=== PATIENT | female | born 1995 | race Two or more races ===

== ENCOUNTER 2017-11-10 11:26 | Emergency (ER) | payer BC ==
[~2017-11-10] VITALS: Ht 157.5 cm; Wt 65.8 kg
[2017-11-10] MEDS ORDERED: CITALOPRAM HBR40 M1 ORAL (11:36)
[2017-11-10] MEDS ORDERED: CYCLOBENZAPRINE10 MG ORAL (11:36)
[2017-11-10 12:29] LABS: APPEARANCE,URINE SLIGHTLY CLOUDY; BILIRUBIN, URINE NEGATIVE (NEGATIVE); GLUCOSE, URINE (UA) NEGATIVE (NEGATIVE); KETONES,URINE 1+ (NEGATIVE); LEUKOCYTE ESTERASE ,URINE 3+ (NEGATIVE); NITRITE,URINE NEGATIVE (NEGATIVE); PH,URINE 6 (4.5-8.0); PROTEIN,URINE 1+ (NEGATIVE); UROBILINOGEN,URINE NORMAL MG/DL (0.0-1.0)
[2017-11-10 12:30] VITALS: BP 95/64
[2017-11-10 12:32] LABS: BASOPHILS % (AUTO) 0.9 % (0.0-2.0); EOSINOPHILS % (AUTO) 0.2 % (0.0-3.0); HEMATOCRIT 42.1 % (37.0-47.0); HEMOGLOBIN 13.7 G/DL (12.0-16.0); LYMPHOCYTES % (AUTO) 21.5 % (20.0-45.0); MEAN CORPUSCULAR VOLUME 89 FL (80-99); MONOCYTES % (AUTO) 7.7 % (1.0-10.0); NEUTROPHILS % (AUTO) 69.7 % (45.0-75.0); PLATELET COUNT 369 K/UL (150-450); RED BLOOD COUNT 4.71 M/UL (4.20-5.40); RED CELL DISTRIBUTION WIDTH 11.4 % (11.6-14.8); WHITE BLOOD COUNT 12.3 K/UL (4.8-10.8)
[2017-11-10 12:33] LABS: ANION GAP 11 mmol/L (5-15); BLOOD UREA NITROGEN 8 mg/dL (7-18); CALCIUM 9.1 MG/DL (8.5-10.1); CARBON DIOXIDE 27 MMOL/L (21-32); CHLORIDE 105 MMOL/L (98-107); CREATININE 0.7 MG/DL (0.55-1.30); SODIUM 143 MMOL/L (136-145)
[2017-11-10 12:38] LABS: ALANINE AMINOTRANSFERASE 9 U/L (12-78); ALBUMIN 3.4 G/DL (3.4-5.0); ALBUMIN/GLOBULIN RATIO 0.8 (1.0-2.7); ALKALINE PHOSPHATASE 51 U/L (46-116); ASPARTATE AMINO TRANSFERASE 15 U/L (15-37); BILIRUBIN,TOTAL 0.3 MG/DL (0.2-1.0)
[2017-11-10 12:44] LABS: COLOR,URINE YELLOW
--- NOTE | 2017-11-10 13:19 | Emergency Room Report ---
History of Present Illness General Chief Complaint: Behavioral Complaint Source: Patient, EMS Present Illness HPI 22-year-old female brought in by [employer] and EMS for suspected intentional overdose. Patient states she was angry that her girlfriend broke up with her, took 4x40 mg citalopram plus unknown amount of Flexeril. Patient has history of depression She also has abrasions to bilateral wrist Patient very sleepy now, states she "doesn't know" if she was trying to hurt herself. Also endorses marijuana use but denies other drug use Denies other medical problems Denies HI, AVH. Allergies: Coded Allergies: No Known Allergies (Unverified , 11/10/17) Patient History Past Medical History: psych hx Past Surgical History: none Pertinent Family History: none Social History: Denies: smoking, alcohol use, drug use Last Menstrual Period: "About a month ago" states she is irregular Now: No Immunizations: UTD Reviewed Nursing Documentation: PMH: Agreed, PSxH: Agreed Nursing Documentation-PMH History Of Psychiatric Problem: Yes - Depression; Anxiety Review of Systems All Other Systems: negative except mentioned in HPI Physical Exam Vital Signs Date Time Temp Pulse Resp B/P (MAP) Pulse Ox O2 Delivery O2 Flow Rate FiO2 11/10/17 11:30 98.1 70 16 128/88 100 Room Air Sp02 EP Interpretation: reviewed, normal General Appearance: normal inspection, well appearing, no apparent distress, alert, GCS 15, non-toxic Head: normocephalic, atraumatic Eyes: bilateral eye PERRL, bilateral eye EOMI ENT: normal ENT inspection, hearing grossly normal, normal pharynx, no angioedema, normal voice, TMs + canals normal, uvula midline, moist mucus membranes Neck: normal inspection, full range of motion, supple, thyroid normal, no meningismus, no bony tend Respiratory: normal inspection, lungs clear, normal breath sounds, no rhonchi, no respiratory distress, no retraction, no accessory muscle use, no wheezing, speaking full sentences Cardiovascular #1: regular rate, rhythm, no edema, no JVD, normal capillary refill Gastrointestinal: normal inspection, normal bowel sounds, non tender, soft, no mass, no peritonitis, non-distended, no guarding, no hernia, no pulsatile mass Genitourinary: no CVA tenderness Musculoskeletal: normal inspection, back normal, normal range of motion, no calf tenderness, pelvis stable, Damon's Sign negative, other - Very minimal abrasions on bilateral inner wrist, right greater than left Neurologic: normal inspection, alert, oriented x3, responsive, manager math III-XII nml as tested, motor strength/tone normal, cerebellar normal, normal gait, speech normal Psychiatric: normal inspection, judgement/insight normal, mood/affect normal, no suicidal/homicidal ideation, no delusions Skin: normal inspection, normal color, no rash Lymphatic: normal inspection, no adenopathy Medical Decision Making Diagnostic Impression: Primary Impression: Suicidal ideation Additional Impression: Overdose of antidepressant Qualified Codes: T43.202A - Poisoning by unspecified antidepressants, intentional self-harm, initial encounter ER Course Patient placed on monitor ECG non-ischemic, no prolonged QTc or QRS No seizures in ED No hypotension Mild hypoK- repleted Urine preg negative UA grossly contaminate - patient denies urinary complaints mild leukocytosis without neutrophil shift, likely stress reaction Medically cleared Dr Garcia consulted 2pm Pending Psych eval Endorsed to Dr Bennett at 230pm EKG Diagnostic Results Rate: normal Rhythm: NSR ST Segments: no acute changes ASA given to the pt in ED: No Rhythm Strip Diag. Results EP Interpretation: yes Rate: 72 Rhythm: NSR, no PVC's, no ectopy Last Vital Signs Date Time Temp Pulse Resp B/P (MAP) Pulse Ox O2 Delivery O2 Flow Rate FiO2 11/10/17 11:30 98.1 70 16 128/88 100 Room Air Status: improved Referrals: NOT CHOSEN [facility]/,REFERRING (PCP) MEAGAN BELL M.D. Nov 10, 2017 13:19
[2017-11-10 14:30] VITALS: BP 105/73
[2017-11-10 16:00] VITALS: BP 101/70
--- NOTE | 2017-11-10 17:27 | Emergency Room Report ---
History of Present Illness General Chief Complaint: Behavioral Complaint Source: Patient, EMS Present Illness Allergies: Coded Allergies: No Known Allergies (Unverified , 11/10/17) Patient History Last Menstrual Period: "About a month ago" states she is irregular Now: No Nursing Documentation-[facility] History Of Psychiatric Problem: Yes - Depression; Anxiety Physical Exam Vital Signs Date Time Temp Pulse Resp B/P (MAP) Pulse Ox O2 Delivery O2 Flow Rate FiO2 11/10/17 11:30 98.1 70 16 128/88 100 Room Air Medical Decision Making Diagnostic Impression: Primary Impression: Suicidal ideation Additional Impression: Overdose of antidepressant Qualified Codes: T43.202A - Poisoning by unspecified antidepressants, intentional self-harm, initial encounter ER Course Hospital Course 22-year-old female presents to ED status post overdose Differential diagnosis includes: Major depressive disorder, alcohol abuse, drug abuse, schizophrenia, bipolar Clinical course Patient signed out to me pending accepting psych facility. Patient currently stable on one-to-one observation [facility] Mora accepted the patient. Patient stable for transfer i. I feel this is a highly complex case requiring extensive working including EKG/Rhythm strip, Xray/CT/US, Blood/urine lab work, repeat exams while in ED, and administration of strong opiates/narcotics for pain control, admission to hospital or close patient follow up. Diagnosis - suicidal ideation, overdose on antidepressants Stable and transferred to psych facility. Followup with PMD/psychiatrist. Return to ED if symptoms recur or worsen Labs Test 11/10/17 11:35 11/10/17 11:50 Urine Color Yellow Urine Appearance Slightly cloudy Urine pH 6 (4.5-8.0) Urine Specific [place] 1.010 (1.005-1.035) Urine Protein 1+ (NEGATIVE) Urine Glucose (UA) Negative (NEGATIVE) Urine Ketones 1+ (NEGATIVE) Urine Occult Blood 4+ (NEGATIVE) Urine Nitrite Negative (NEGATIVE) Urine Bilirubin Negative (NEGATIVE) Urine Urobilinogen Normal MG/DL (0.0-1.0) Urine Leukocyte Esterase 3+ (NEGATIVE) Urine RBC 2-4 /HPF (0 - 2) Urine WBC 10-15 /HPF (0 - 2) Urine Squamous Epithelial Cells Moderate /LPF (NONE/OCC) Urine Bacteria Few /HPF (NONE) Urine HCG, Qualitative Negative Urine Opiates Screen Negative (NEGATIVE) Urine Barbiturates Screen Negative (NEGATIVE) Phencyclidine (PCP) Screen Negative (NEGATIVE) Urine Amphetamines Screen Negative (NEGATIVE) Urine Benzodiazepines Screen Negative (NEGATIVE) Urine Cocaine Screen Negative (NEGATIVE) Urine Marijuana (THC) Screen Positive (NEGATIVE) White Blood Count 12.3 K/UL (4.8-10.8) Red Blood Count 4.71 M/UL (4.20-5.40) Hemoglobin 13.7 G/DL (12.0-16.0) Hematocrit 42.1 % (37.0-47.0) Mean Corpuscular Volume 89 FL (80-99) Mean Corpuscular Hemoglobin 29.2 PG (27.0-31.0) Mean Corpuscular Hemoglobin Concent 32.6 G/DL (32.0-36.0) Red Cell Distribution Width 11.4 % (11.6-14.8) Platelet Count 369 K/UL (150-450) Mean Platelet Volume 7.3 FL (6.5-10.1) Neutrophils (%) (Auto) 69.7 % (45.0-75.0) Lymphocytes (%) (Auto) 21.5 % (20.0-45.0) Monocytes (%) (Auto) 7.7 % (1.0-10.0) Eosinophils (%) (Auto) 0.2 % (0.0-3.0) Basophils (%) (Auto) 0.9 % (0.0-2.0) Sodium Level 143 MMOL/L (136-145) Potassium Level 3.0 MMOL/L (3.5-5.1) Chloride Level 105 MMOL/L (98-107) Carbon Dioxide Level 27 MMOL/L (21-32) Anion Gap 11 mmol/L (5-15) Blood Urea Nitrogen 8 mg/dL (7-18) Creatinine 0.7 MG/DL (0.55-1.30) Estimat Glomerular Filtration Rate > 60 mL/min (>60) Glucose Level 85 MG/DL (74-106) Calcium Level 9.1 MG/DL (8.5-10.1) Total Bilirubin 0.3 MG/DL (0.2-1.0) Aspartate Amino Transf (AST/SGOT) 15 U/L (15-37) Alanine Aminotransferase (ALT/SGPT) 9 U/L (12-78) Alkaline Phosphatase 51 U/L (46-116) Total Protein 7.9 G/DL (6.4-8.2) Albumin 3.4 G/DL (3.4-5.0) Globulin 4.5 g/dL Albumin/Globulin Ratio 0.8 (1.0-2.7) Salicylates Level 1.4 ug/mL (2.8-20) Acetaminophen Level < 2 MCG/ML (10-30) Serum Alcohol < 3 mg/dL Last Vital Signs Date Time Temp Pulse Resp B/P (MAP) Pulse Ox O2 Delivery O2 Flow Rate FiO2 11/10/17 16:00 76 14 101/70 96 Room Air 11/10/17 11:30 98.1 Status: improved Disposition: XFER TO PSYCH HOSP/UNIT Condition: Serious Referrals: NOT CHOSEN [facility]/,REFERRING (PCP) JORGE DONOHUE M.D. Nov 10, 2017 17:27
[2017-11-10 17:40] VITALS: BP 101/70
--- NOTE | 2017-11-11 17:47 | Cardiology Report ---
APPROVED REPORT EKG Measurement Heart [id number] Normal sinus rhythm Low voltage QRS Nonspecific T wave abnormality Abnormal ECG
== END 2017-11-10 17:40 ==
LOC: EDBD 11:26 → EMR 12:31
DX: T43.222A Poisoning by selective serotonin reuptake inhibitors, intentional self-harm, initial encounter (principal); R45.851 Suicidal ideations; F32.9 Major depressive disorder, single episode, unspecified; F41.9 Anxiety disorder, unspecified; S60.812A Abrasion of left wrist, initial encounter; S60.811A Abrasion of right wrist, initial encounter; Y92.9 Unspecified place or not applicable
CPT/HCPCS: 36415; 80053; 80307; 81003; 81025; 85025; 87086; 93005; 99284; G0480; 80329; J8499